=== PATIENT | female | born 1955 | race Caucasian/White ===

== ENCOUNTER 2017-12-17 16:21 | Outpatient (REF) | payer OTHER, SELFPAY ==
--- NOTE | 2017-12-17 16:00 | PAPFT_PTH ---
PATIENT: Princess Carlos LOC: [facility]#:[id number] AGE/SX: 62/F ROOM: RE12/17/[address]: Dahiana Leiva : 1955 BED: DIS: 12/17/2017 SPEC #: [id number] RECD: 12/18/17 12:41 STATUS: ARMANDO RESanjay #: [id number] MAXWELL: 12/17/17 16:[address]: Dahiana Leiva DEPT: [facility] Cytology RECD BY: Suad Dougherty ENTERED: 12/18/17 12:42 SP TYPE: PAPFT NATHALY DR: Yany Camarena Tissues: 1 - CX/ENDOCX FOR PAP SMEARS Procedures: PAP THIN PREP/[facility] Screening HPV DNA PROBE Comments: [id number]
== END 2017-12-17 16:41 ==
LOC: NCHCN 16:21
PROVIDERS: PCP Physician Assistant Medical; Visit Provider Nurse Practitioner Family
DX: Z12.4 Encounter for screening for malignant neoplasm of cervix (principal); Z11.51 Encounter for screening for human papillomavirus (HPV)
CPT/HCPCS: 88142; 87624

== ENCOUNTER 2017-12-23 09:09 | Outpatient (REF) | payer OTHER, SELFPAY ==
[2017-12-23 21:07] LABS: Cholesterol 231 mg/dL (50-200); Glucose 92 mg/dL (70-100); HDL Cholesterol 60 mg/dL (40-60); LDL CHOLESTEROL 162 mg/dL (<100); Triglyceride 76 mg/dL (30-150)
== END 2017-12-23 09:29 ==
LOC: NCHCN 09:09
PROVIDERS: PCP Nurse Practitioner Family; Visit Provider Nurse Practitioner Family
DX: Z00.00 Encounter for general adult medical examination without abnormal findings (principal); Z13.1 Encounter for screening for diabetes mellitus; Z13.220 Encounter for screening for lipoid disorders
CPT/HCPCS: 80061; 82947; 83721

== ENCOUNTER 2018-02-01 18:39 | Emergency (ER) | payer OTHER, SELFPAY ==
[2018-02-01 18:50] VITALS: BP 140/74; PULSE 83; RESP 16; TEMP 37.1; O2SAT 96
--- NOTE | 2018-02-01 19:02 | DI.RAD_ITS ---
SYMPTOMS/DIAGNOSIS: FALL ON OUTSTRETCHED HAND, PAIN LEFT WRIST: Three views were obtained. There is a nondisplaced fracture of the distal radius. No additional fractures identified.
--- NOTE | 2018-02-01 19:05 | ED.GENADUL_ITS ---
Discharge Plan Disposition Patient Disposition: HOME Condition: Fair Discharge Details Chief Complaint: Orthopedic Clinical Impression: Distal radius fracture, left Reason For Visit: left wrist Primary Care Provider: Dahiana Leiva ED Provider: Cassandra Elizondo Home Meds and New Rx's Prescriptions: Continued ibuprofen 200 mg Capsule 400 mg PO PRN PRNRF: 0 Discharge Instructions Instructions: Wrist Fracture in Adults (ED) Additional Instructions: Encourage rest, ice, elevation. Tylenol and/or ibuprofen as needed for discomfort. Please contact orthopedics Thursday to schedule follow-up appointment. If you develop new or worsening symptoms please seek care urgently once again Stand Alone Forms: Work Release Referrals: Dahiana Leiva [Primary Care Provider] - Medical Decision Making Patient is 62-year-old [id number] female presenting today with chief complaint of left wrist pain. She reports her depression at 3 hours prior to arrival she fell on her outstretched left hand while ice skating. Patient is right-hand dominant. She denies any altered sensation. Pain is primarily along the ulnar aspect. No previous fracture, surgery or injury. Limited range of motion. Swelling along the dorsal aspect. She denies other injury at the time of the incident. No pain on palpation over the elbow or shoulder. Took ibuprofen prior to arrival. Is declining any analgesics at this time. Will obtain x-ray to evaluate for any bony abnormality XR reviewed by radiologist: FINDINGS: Bones/joints: Minimally displaced fracture of the distal radial metaphysis. No dislocation. Soft tissues: No radiopaque. IMPRESSION: Minimally displaced fracture of the distal radial metaphysis. No dislocation. Discussed with patient. Plaster splint made for patient. She tolerated this well. Neurovasc intact after application. Encouraged rest, ice, elevation. Tylenol and/or Motrin as needed for discomfort. Advised f/u with orthopedics, she prefers to f/u at [facility]. She will call them Thursday to schedule appointment. Advised she seek care with new/worsening symptoms. All quesitons and concerns were addressed, she is in agreement with thisp julia. HPI General Mode of arrival: ambulatory . Date/Time Provider Initiated Documentation: 02/01/18 18:58 . Limitations to Documentation: no limitations . Information obtained by: patient and family . History of Present Illness 62 year old F presents to the emergency department with the chief complaint of left wrist pain, described as moderate, with intensity rated at 7. Quality is described as aching, and is localized to the left and upper extremity. Patient proximal. Patient started experiencing this hour(s) (3) and it has been constant. Immobilization improves symptom(s), Movement worsens symptoms . Patient notes denies chest pain, cough, fever/chills, nausea/vomiting and rash. Patient did receive the following treatments prior to arrival, NSAID Related Data Home Medications Medication Instructions Recorded Confirmed ibuprofen 400 mg PO PRN PRN 02/01/18 02/01/18 Allergies Allergy/AdvReac Type Severity Reaction Status Date / Time No Known Allergies Allergy Unverified 02/01/18 18:54 General Stated Complaint: Orthopedic QUENTIN: 4 Review of Systems Constitutional Reports as per HPI, Denies chills, Denies fever(s), Denies headache(s) and Denies weakness ENT Denies headache(s) Cardiovascular Reports as per HPI Respiratory Reports as per HPI and Denies cough Musculoskeletal Reports as per HPI and Denies tingling Integumentary/Breasts Reports as per HPI, Denies rash and Denies wounds Neurologic Denies headache(s), Denies tingling and Denies weakness FOR[facility]LY [facility], [facility] Social History Smoking/Tobacco Use Status: Former Tobacco Use Exam Const General: cooperative, healthy appearing, comfortable, no acute distress, well developed and well groomed Nutritional Appearance: average body habitus and well nourished Orientation: alert and awake Resp Effort & Inspection: normal respiratory effort, able to speak in complete sentences and no respiratory distress Cardio Rate: regular rate Rhythm: regular rhythm Skin General skin exam: no rashes or lesions noted Lesions: no lesions Rashes: no rashes Trauma: no lacerations or abrasions Neuro General: alert and awake Cognition: normal cognition Speech: speech normal Gait: normal gait Motor: muscle tone normal throughout Sensory Exam: no sensory deficits noted Extrem Right upper extremity: normal capillary refill and wrist Details: tenderness Location: of the distal ulna, swelling Location: of the dorsal wrist, abnormal ROM Details: pain with active ROM during Details: with extension and with flexion and normal vascular exam; normal to inspection, ROM abnormal, no unusual warmth, no abrasions, no lacerations, no ecchymosis, no crepitus and no deformity; joint enlargement noted Psych Appearance: grossly normal and well kempt Mental Status: mental status grossly normal Speech and Movement: speech and movement normal Course Vital Signs Temperature 37.1 C 02/01/18 18:50 Pulse 83 02/01/18 18:50 Respiratory Rate 16 02/01/18 18:50 Blood Pressure 140/74 02/01/18 18:50 Pulse Oximetry 96 02/01/18 18:50 Temperature 37.1 C 02/01/18 18:50 Temperature Source Temporal Artery Scan 02/01/18 18:50 Pulse 83 02/01/18 18:50 Respiratory Rate 16 02/01/18 18:50 Respiratory Effort 02/01/18 18:55 Blood Pressure 140/74 02/01/18 18:50 Blood Pressure Position Sitting 02/01/18 18:50 Pulse Oximetry 96 02/01/18 18:50 Oxygen Delivery Method Room Air 02/01/18 18:50 Oxygen Flow Rate 0 02/01/18 18:50 Pain Level 7 02/01/18 18:50
--- NOTE | 2018-02-01 20:01 | DI.VRAD_ITS ---
EXAM: XR Left Wrist Complete, 3 or more Views EXAM DATE/TIME: 02/01/2018 7:03 PM CLINICAL HISTORY: 62 years old, female; Pain; Wrist; Left; Patient HX: Pain after fall, foosh TECHNIQUE: XR Left wrist 3 or more views. COMPARISON: No relevant prior studies available. FINDINGS: Bones/joints: Minimally displaced fracture of the distal radial metaphysis. No dislocation. Soft tissues: No radiopaque. IMPRESSION: Minimally displaced fracture of the distal radial metaphysis. No dislocation. Dictated and Authenticated by: Vish Caputo MD. Ordering:MARLYN Trujillo MD
--- NOTE | 2018-02-01 20:04 | NUR.NOTE ---
patient fitted with plaster splint, teaching provided by [facility]. Nursing Note:
== END 2018-02-01 20:26 | disposition home or self-care (01) ==
PROVIDERS: Emergency Provider Physician Assistant; PCP Nurse Practitioner Family
DX: S59.292A Other physeal fracture of lower end of radius, left arm, initial encounter for closed fracture (principal); V00.211A Fall from ice-skates, initial encounter
CPT/HCPCS: 25600; 73110

== ENCOUNTER 2018-02-10 10:38 | Outpatient (CLI) | payer OTHER, SELFPAY ==
--- NOTE | 2018-02-10 10:34 | DI.RAD_ITS ---
SYMPTOMS/DIAGNOSIS: F/U FX LEFT WRIST: Comparison is made with [id number]. There has been no change in alignment of the distal radial fracture which shows some interval healing when compared with the previous exam. No new abnormalities are identified.
== END 2018-02-10 10:58 ==
PROVIDERS: PCP Nurse Practitioner Family; Visit Provider Orthopaedic Surgery
DX: S52.502D Unspecified fracture of the lower end of left radius, subsequent encounter for closed fracture with routine healing (principal)
CPT/HCPCS: 73100

== ENCOUNTER 2018-03-17 09:19 | Outpatient (CLI) | payer OTHER, SELFPAY ==
--- NOTE | 2018-03-17 09:11 | DI.RAD_ITS ---
SYMPTOM/DIAGNOSIS: F/U FX LEFT WRIST: Comparison is made with 02/10/18. There is slight sclerosis around the previously noted distal radial fracture indicating some interval healing. No new abnormalities are seen.
== END 2018-03-17 09:39 ==
PROVIDERS: PCP Nurse Practitioner Family; Visit Provider Physician Assistant
DX: S52.502D Unspecified fracture of the lower end of left radius, subsequent encounter for closed fracture with routine healing (principal)
CPT/HCPCS: 73100

== ENCOUNTER 2018-06-28 17:32 | Outpatient (REF) | payer OTHER, SELFPAY ==
[2018-06-28 21:08] LABS: Abs Immature Grans 0.02 k/cumm (0.0-0.09); Absolute Basophil Count 0.03 k/cumm (0.0-0.2); Absolute Eosinophil Count 0.21 k/cumm (0.0-0.7); Absolute Lymphocyte Count 2.91 k/cumm (1.2-3.4); Absolute Monocyte Count 0.44 k/cumm (0.11-0.7); Absolute Neutrophil Count 5.14 k/cumm (1.2-6.7); Basophils % 0.3; Eosinophils % 2.4; HCT 39.1 % (36.0-46.0); HGB 13.4 g/dL (12.0-15.5); Immature Grans % 0.2; Lymphocytes % 33.3; Mean Corp. HGB Concentration 34.3 g/dL (32.0-36.0); Mean Corpuscular Hemoglobin 30.3 pg (27.0-33.0); Mean Corpuscular Volume 88.5 fL (80-95); Mean Platelet Volume 9.6 fL (8.0-11.0); Neutrophils % 58.8; Platelet Count 317 x1000/uL (130-400); RBC 4.42 m/cumm (4.00-5.20); RBC Distribution Width 13.4 % (11.7-14.6); White Blood Cell Count 8.75 k/cumm (4.4-10.8)
[2018-06-30 12:36] LABS: Lyme Ab w Rflx to Lyme Confirm Negative
== END 2018-06-28 17:52 ==
LOC: NCHCN 17:32
PROVIDERS: PCP Nurse Practitioner Family; Visit Provider Nurse Practitioner Family
DX: M54.2 Cervicalgia (principal)
CPT/HCPCS: 85025; 86618

== ENCOUNTER 2018-07-13 01:42 | Outpatient (CLI) | payer OTHER, SELFPAY ==
--- NOTE | 2018-07-13 08:15 | DI.RAD_ITS ---
SYMPTOM/DIAGNOSIS: CHRONIC NECK PAIN, M54.2, DECREASED RANGE OF MOTION, ? ARTHRITIS, H/O BREAST CA CERVICAL SPINE: Five views were obtained. Intervertebral disc spaces are fairly well maintained with slight narrowing at C 6-7. There are prominent hypertrophic endplate changes and facet joint changes at C 4-5, C 5-6 and C 6-7. Neural foramina appear mostly well maintained except for question of narrowing at C 5-6 on the right and C 6-7 on the left. No erosive or destructive process is seen. No evidence of fracture. CONCLUSION: Marked degenerative changes of the cervical spine as described above.
== END 2018-07-13 02:02 ==
PROVIDERS: PCP Nurse Practitioner Family; Visit Provider Nurse Practitioner Family
DX: M47.812 Spondylosis without myelopathy or radiculopathy, cervical region (principal); M54.2 Cervicalgia; Z85.3 Personal history of malignant neoplasm of breast
CPT/HCPCS: 72050

== ENCOUNTER 2020-11-05 08:31 | Outpatient (REF) | payer BC, SELFPAY ==
[2020-11-05 16:43] LABS: Calculated LDL 134 mg/dL (<100); Cholesterol 218 mg/dL (<200); Glucose 99 mg/dL (74-106); HDL Cholesterol 62 mg/dL (40-60); Triglyceride 110 mg/dL (<150)
== END 2020-11-05 08:32 | disposition home or self-care (01) ==
LOC: NCHCN 08:31
PROVIDERS: PCP Nurse Practitioner Family; Visit Provider Nurse Practitioner Family
DX: E78.5 Hyperlipidemia, unspecified (principal)
CPT/HCPCS: 80061; 82947

== ENCOUNTER 2021-11-13 10:17 | Outpatient (REF) | payer BC, SELFPAY ==
[2021-11-13 14:52] LABS: HCT 38.7 % (36.0-46.0); HGB 13.4 g/dL (11.2-15.7); MCHC 34.6 % (32.0-36.0); MCV 87 fL (80-95); MPV 9.1 fL (8.0-11.0); Platelet Count 290 10^3/uL (130-400); RBC 4.46 10^6/uL (3.93-5.22); RDW 12.4 % (11.7-14.6); RDW-SD 39.8 fL; WBC 6.73 10^3/uL (4.4-10.8)
[2021-11-13 15:33] LABS: Anion Gap 11.8 mmol/L (3-11); BUN 11 mg/dL (7-18); CO2 25.2 mmol/L (21.0-32.0); CREATININE 0.5 mg/dL (0.55-1.02); Calcium 9.2 mg/dL (8.5-10.1); Calculated LDL 120 mg/dL (<100); Chloride 103 mmol/L (98-107); Cholesterol 186 mg/dL (<200); Glucose 97 mg/dL (74-106); HDL Cholesterol 53 mg/dL (40-60); Sodium 140 mmol/L (136-145); Triglyceride 69 mg/dL (<150)
[2021-11-13 15:42] LABS: Hemoglobin A1C 5.9 % (<5.7)
== END 2021-11-13 10:18 | disposition home or self-care (01) ==
LOC: NCHCN 10:17
PROVIDERS: PCP Nurse Practitioner Family; Visit Provider Nurse Practitioner Family
DX: Z13.1 Encounter for screening for diabetes mellitus (principal); E78.5 Hyperlipidemia, unspecified; K57.30 Diverticulosis of large intestine without perforation or abscess without bleeding; Z85.3 Personal history of malignant neoplasm of breast
CPT/HCPCS: 80048; 80061; 85027; 83036

== ENCOUNTER 2022-08-05 16:00 | Outpatient (REF) | payer BC, SELFPAY ==
--- NOTE | 2022-08-05 15:00 | SKI_PTH ---
PATIENT: Princess Carlos LOC: [facility] #:[id number] AGE/SX: 66/F ROOM: RE08/05/[address]: Lisa Cardenas V : 1955 BED: DIS: 08/05/2022 SPEC #: [id number] RECD: 08/05/22 18:28 STATUS: ARMANDO RESanjay #: [id number] MAXWELL: 08/05/22 15:[address]: Lisa Cardenas V DEPT: Surgical Specimen RECD BY: Suad Dougherty ENTERED: 08/05/22 18:30 SP TYPE: YAKOV ANDERSEN DR: Dahiana Leiva Tissues: 1 - SKIN BIOPSY(SHAVE/PUNCH) Procedures: SKIN LEVEL 4 Comments: [id number]
== END 2022-08-05 16:01 | disposition home or self-care (01) ==
LOC: NCHCN 16:00
PROVIDERS: PCP Nurse Practitioner Family; Visit Provider Family Medicine
DX: C44.722 Squamous cell carcinoma of skin of right lower limb, including hip (principal)
CPT/HCPCS: 88305

== ENCOUNTER 2022-08-19 16:38 | Outpatient (REF) | payer BC, SELFPAY ==
--- NOTE | 2022-08-19 14:30 | SKI_PTH ---
PATIENT: Princess Carlos LOC: [facility] #:[id number] AGE/SX: 66/F ROOM: RE08/19/[address]: Lisa Cardenas V : 1955 BED: DIS: 08/19/2022 SPEC #: [id number] RECD: 08/19/22 18:23 STATUS: ARMANDO RESanjay #: [id number] MAXWELL: 08/19/22 14:[address]: Lisa Cardenas V DEPT: Surgical Specimen RECD BY: Suad Dougherty ENTERED: 08/19/22 18:23 SP TYPE: YAKOV ANDERSEN DR: Dahiana Leiva Tissues: 1 - SKIN BIOPSY(SHAVE/PUNCH) 2 - SKIN BIOPSY(SHAVE/PUNCH) Procedures: SKIN LEVEL 4 Comments: [id number]
== END 2022-08-19 16:39 | disposition home or self-care (01) ==
LOC: NCHCN 16:38
PROVIDERS: PCP Nurse Practitioner Family; Visit Provider Family Medicine
DX: C44.42 Squamous cell carcinoma of skin of scalp and neck (principal)
CPT/HCPCS: 88305

== ENCOUNTER 2023-12-08 22:03 | Outpatient (REF) | payer BC, SELFPAY ==
[2023-12-08 21:18] LABS: Anion Gap 10.1 mmol/L (3-11); BUN 15 mg/dL (7-18); CO2 27.9 mmol/L (21.0-32.0); CREATININE 0.7 mg/dL (0.55-1.02); Calcium 9.7 mg/dL (8.5-10.1); Calculated LDL 115 mg/dL (<100); Chloride 105 mmol/L (98-107); Cholesterol 226 mg/dL (<200); Estimated GFR 92.98 (mL/min/1.73m2); Glucose 93 mg/dL (74-106); HDL Cholesterol 76 mg/dL (40-60); Hemoglobin A1C 5.7 % (<5.7); Potassium 4.3 mmol/L (3.5-5.1); Sodium 143 mmol/L (136-145); Triglyceride 177 mg/dL (<150)
[2023-12-10 15:06] LABS: Hepatitis C Ab w Rflx HCV PCR Negative (Negative)
== END 2023-12-08 22:04 | disposition home or self-care (01) ==
LOC: NCHCN 22:03
PROVIDERS: PCP Family Medicine; Visit Provider Family Medicine
DX: R73.03 Prediabetes (principal); E78.5 Hyperlipidemia, unspecified; Z11.59 Encounter for screening for other viral diseases
CPT/HCPCS: 80048; 80061; 86803; 83036